=== PATIENT | male | born 1950 | race Caucasian/White ===

== ENCOUNTER → 2018-11-01 | Outpatient (CLI) | payer MEDICARE ==
--- NOTE | 2018-11-01 10:02 | XR ---
EXAMINATION TYPE: XR chest 2V DATE OF EXAM: 11/01/2018 COMPARISON: NONE HISTORY: Shortness of breath TECHNIQUE: Frontal and lateral views of the chest are obtained. FINDINGS: Scattered senescent parenchymal changes noted. Hyperinflation compatible with COPD. No evidence for infiltrate. No evidence for atelectasis. Heart size is stable. Mediastinal structures are stable and grossly unremarkable. No evidence for hilar prominence. Degenerative changes dorsal spine. IMPRESSION: 1. No evidence for acute pulmonary disease.
[2018-11-01 10:28] LABS: Appearance,Urine Clear (Clear); Bilirubin,Urine Negative (Negative); Blood,Urine Small (Negative); Color,Urine Yellow; Glucose,Urine (UA) Negative (Negative); INR 0.9 (<1.2); Ketones,Urine Negative (Negative); Leukocyte Esterase,Urine Negative (Negative); Mucus,Urine Few /hpf; Nitrite,Urine Negative (Negative); Partial Thromboplastin Time 27.6 sec (22.0-30.0); Protein,Urine Negative (Negative); Prothrombin Time 9.6 sec (9.0-12.0); RBC,Urine 1 /hpf (0-5); Specific Gravity,Urine 1.019 (1.001-1.035); Squamous Epithelial Cell,Urine <1 /hpf (0-4); Urobilinogen,Urine <2.0 mg/dL (<2.0); WBC,Urine 1 /hpf (0-5)
[2018-11-01 10:41] LABS: African American GFR (CKD) >90 (>60 ml/min/1.73 sqM); Anion Gap 12 mmol/L; Blood Urea Nitrogen 19 mg/dL (9-20); Calcium 9.9 mg/dL (8.4-10.2); Carbon Dioxide 26 mmol/L (22-30); Chloride 105 mmol/L (98-107); Glucose 104 mg/dL (74-99); Sodium 143 mmol/L (137-145)
[2018-11-01 10:42] LABS: Basophils # (A) 0.2 k/uL (0-0.2); Basophils % (A) 1 %; Eosinophils # (A) 0.3 k/uL (0-0.7); Eosinophils % (A) 2 %; HCT 48.6 % (39.0-53.0); HGB 16.1 gm/dL (13.0-17.5); Lymphocytes # (A) 2.2 k/uL (1.0-4.8); Lymphocytes % (A) 20 %; MCH 31.6 pg (25.0-35.0); MCHC 33.1 g/dL (31.0-37.0); MCV 95.7 fL (80.0-100.0); Mean Platelet Volume 8.7; Monocytes # (A) 0.6 k/uL (0-1.0); Monocytes % (A) 5 %; Neutrophils # (A) 7.9 k/uL (1.3-7.7); Neutrophils % (A) 70 %; Platelet Count 238 k/uL (150-450); RBC 5.08 m/uL (4.30-5.90); RDW 13.7 % (11.5-15.5); WBC 11.3 k/uL (3.8-10.6)
== END | disposition home or self-care (01) ==
LOC: LABPAT 09:20
PROVIDERS: ATTEND Orthopaedic Surgery Orthopaedic Surgery of the Spine
DX: Z01.818 Encounter for other preprocedural examination (principal); M48.02 Spinal stenosis, cervical region; Z01.812 Encounter for preprocedural laboratory examination
CPT/HCPCS: 36415; 71046; 80048; 81001; 85025; 85610; 85730; 93005

== ENCOUNTER 2018-11-12 07:21 | Day surgery (SDC) | payer MEDICARE ==
[2018-11-06 08:59] VITALS: BMI 20.3
[~2018-11-12 07:21] MED LIST: BACITRACIN 50,000 UNIT, POLYMYXIN B 500,000 UNIT in SODIUM CHLORIDE 0.9% IRRIGATIO 1,00... IRRIGATION ONE; DEXAMETHASONE SOD PHOSPHATE 10 MG/ML 1 ML VIAL IV ONE; LIDOCAINE 1% 20 ML VIAL (10MG/ML) FOR IV START INTRADERMA PRN
[2018-11-12] MEDS: LACTATED RINGERS 1,000 ML IV SCH (07:52)
[2018-11-12] MEDS ORDERED: ONDANSETRON 4 MG/2 ML VIAL IVP ONE (07:52)
[2018-11-12] MEDS ORDERED: MIDAZOLAM 2 MG/2 ML VIAL ONE (08:20)
[2018-11-12] MEDS ORDERED: NEOSTIGMINE 1 MG/ML 10 ML VIAL ONE (08:20)
[2018-11-12] MEDS ORDERED: fentaNYL (PF) 50 MCG/ML 2 ML AMP ONE (08:20)
[2018-11-12] MEDS ORDERED: ROCURONIUM BROMIDE 10 MG/ML 10 ML VIAL IV ONE (08:20)
[2018-11-12] MEDS ORDERED: PROPOFOL 10 MG/ML 20 ML VIAL IV ONE (08:20)
[2018-11-12] MEDS ORDERED: GLYCOPYRROLATE 0.2 MG/ML 2 ML VIAL ONE (08:20)
[2018-11-12] MEDS ORDERED: LIDOCAINE 1% INJ 10MG/ML (20 ML MDV) ONE (08:20)
[2018-11-12] MEDS ORDERED: DEXAMETHASONE SOD PHOS (MDV) 100 MG/10 ML VIAL ONE (08:20)
[2018-11-12] MEDS ORDERED: SUCCINYLCHOLINE CHLORIDE 100 MG/5 ML SYR IV ONE (08:20)
[2018-11-12] MEDS ORDERED: ePHEDrine SULFATE/0.9% NACL/PF 50 MG/5 ML SYRINGE IV ONE (08:20)
[2018-11-12] MEDS ORDERED: LIDOCAINE 0.5%-EPI 1:200,000 50 ML VIAL SQ ONE ×2 (09:00)
[2018-11-12] MEDS ORDERED: THROMBIN (BOVINE) 5,000 UNIT VIAL TOPICAL ONE (09:16)
[2018-11-12] MEDS ORDERED: GELATIN SPONGE,ABSORB (LARGE) 1 EACH SPONGE TOPICAL ONE (09:17)
[2018-11-12] MEDS ORDERED: LACTATED RINGERS 1,000 ML IV ONE ×2 (10:05→12:28)
[2018-11-12] MEDS ORDERED: ONDANSETRON 4 MG/2 ML VIAL IVP PRN (10:54)
[2018-11-12] MEDS ORDERED: BENZOCAINE/MENTHOL LOZENG 1 EACH LOZENGE MUCOUS MEM PRN (10:54)
[2018-11-12] MEDS ORDERED: HYDROcodone/APAP 5-325MG 1 EACH TAB PO PRN (10:54)
[2018-11-12] MEDS ORDERED: ACETAMINOPHEN TAB 325 MG TAB PO PRN (10:54)
[2018-11-12] MEDS ORDERED: HYDROmorphone 0.5 MG/0.5 ML SYRINGE IVP PRN (10:54)
[2018-11-12] MEDS ORDERED: MAGNESIUM HYDROXIDE 2,400 MG/10 ML CUP PO PRN (10:54)
--- NOTE | 2018-11-12 10:59 | P.OP ---
Date of Procedure: 11/12/18 Preoperative Diagnosis: Severe cervical stenosis C4 5 C5 6 C6 7, degenerative disc disease, cervical kyphosis, osteophyte spurring, upper extremity radiculopathy, neck pain, Postoperative Diagnosis: Same Anesthesia: GETA Pathology: none sent Condition: stable Disposition: PACU Description of Procedure: BRIEF OPERATIVE NOTE Preoperative Diagnosis:Severe cervical stenosis C4 5 C5 6 C6 7, degenerative disc disease, cervical kyphosis, osteophyte spurring, upper extremity radiculopathy, neck pain, Postoperative Diagnosis:Severe cervical stenosis C4 5 C5 6 C6 7, degenerative disc disease, cervical kyphosis, osteophyte spurring, upper extremity radiculopathy, neck pain, Procedure: Anterior cervical decompression with discectomy and fusion C4 5 C5 6 C6 7 Placement of interbody graft C4 5 C5 6 C6 7 Application of anterior cervical plate C4 5 6 and 7 Surgeon: Dr. Reina Wanigan Clerk: Amadou ROME who is present throughout the entire the case persistence during positioning, dissection, exposure, visualization, and all crucial elements of the case as well as closure. Anesthesia: General anesthesia Estimated blood loss: Approximately 75 mL Complications: None apparent Components implanted: K2M Sanders anterior cervical plate system with variable angle screws measuring 3.5 and 4.0 x 14 Disposition: To recovery room in good stable condition. OPERATIVE INDICATIONS The patient has had long-standing issues in their neck and upper extremities. He was having evidence of further degenerative change and progressive kyphosis at his cervical spine with significant stenosis at C4 5 C5-C6. Findings correlated well with his neck and upper extremity symptoms. He was having worsening split symptoms despite aggressive conservative care. The patient has been through conservative treatment. We discussed various treatment options including surgery, and the patient wishes to proceed with surgery We discussed the risk, patient's alternatives and benefits of surgery including but not limited to, risk of bleeding risk of infection, risk of need for further surgery, risk of decreased, loss of motion, muscle function, malunion nonunion, hardware failure, nerve damage, paralysis, heart attack, and . OPERATIVE SUMMARY After discussing all the risks, patient alternatives and benefits at length, the patient elected to proceed with surgical intervention, signed informed consent, and presented for their procedure. The patient was seen and examined in the preoperative holding area and the surgical site was marked. The patient was given antibiotics and brought to the operating room. The patient was positioned on the operating room table in a supine position being careful to pad any bony prominences and pressure points. The patient was sedated and intubated by anesthesia in standard fashion. Once the airway and C- spine were stabilized the patient's arms were padded and tucked at her side, with her shoulders gently taped. The head was placed in a donut pad with the neck in good neutral alignment and position. We were careful to maintain the patient's cervical spine and good neutral alignment and position throughout. The patient was prepped and draped in a normal standard fashion. An appropriate timeout and keystone protocol performed. We were able to proceed with the surgery. The local wound area was infiltrated with local anesthetic. An incision was made transversely approximately 2-1/2 cm over the appropriate levels at C5 6 on the right. Dissection was taken down subcutaneously to the level of the platysma which was split in line with its fibers. Dissection was taken with a carotid approach, with the trachea and esophagus medial and the carotid sheath laterally. We dissected down to the anterior surface of the vertebral bodies. Intraoperative x-ray was taken which showed a marker at the appropriate level at C5 6. With the appropriate level positively confirmed, we were able to proceed with discectomy at the appropriate levels first at C6 7 and then at C5 6 and at C4 5. All of the operative levels were exposed appropriately. The patient had all their twitches back, and there was no evidence of recurrent laryngeal issue. The wound was copiously irrigated and suctioned dry as had been done periodically throughout the case. At the appropriate level/levels, starting at C6 7 and then at C5 6 and then at C4 5, I established an annulotomy with an 11 blade scalpel. Large anterior osteophytes removed with a Kerrison rongeur. A discectomy was performed with a combination of pituitary rongeurs, curettes, a high-speed bur, and Kerrison rongeurs. The posterior longitudinal ligament was taken down as were any posterior osteophytes. There had been evidence of severe central and bilateral foraminal decompression but decompression discectomy gave good ligamentous. This gave good central and bilateral foraminal decompression. There is no evidence of any dural tear or leak. The endplates were prepared with a high-speed bur. With the endplates in good parallel position, I was able to size for the appropriate size interbody graft. The wound was irrigated and suctioned dry the graft was prepared and malleted into position. It had good alignment and position with the anterior surface flush with the anterior surface of the vertebral bodies. This was done similarly the appropriate levels. With the grafts intact, I was able to measure and contour and appropriate sized plate. The plate was positioned at the midline over the appropriate levels from C4 to C7. Screw holes were established with a hand drill and drill guide. Screws were placed in good alignment and position with excellent bony purchase. We tried to get some improved positioning of the patient's kyphosis at his cervical spine. They were seated under the locking device. The construct was checked and found to be stable. Intraoperative x-ray was taken which showed good alignment and position of the implants at the appropriate levels. There was no evidence of any dural tear or leak. Good hemostasis was maintained. The wound was copiously irrigated and suctioned dry as had been done periodically throughout the case. The platysma was closed with absorbable suture. The subcutaneous tissue was closed. The subcuticular tissue was closed with absorbable suture. The wound was cleaned and dried and dressed appropriately. A soft cervical collar was placed appropriately. The patient was woken up by anesthesia, extubated, transferred back gently to their hospital bed and brought to the recovery room in good stable condition. The patient will be admitted to the hospital for appropriate postoperative care, medical management and monitoring. We will continue to follow them closely about the postoperative course.
[2018-11-12] MEDS ORDERED: HYDROmorphone 1 MG/ML 1 ML SYRINGE IVP ONE ×7 (11:26→14:13)
--- NOTE | 2018-11-12 11:28 | XR ---
EXAMINATION TYPE: XR cervical spine 1V DATE OF EXAM: 11/12/2018 COMPARISON: NONE HISTORY: Postop TECHNIQUE: One view is submitted. FINDINGS: Single view demonstrates endotracheal tube. There is postsurgical change compatible with anterior fix ation involving the mid and lower cervical spine which appears in near-anatomic alignment. Hypertroph ic spurring at C3-4 and C2-3 noted there is multilevel facet arthropathy with diffuse osteopenia. IMPRESSION: 1. Postsurgical changes.
[2018-11-12] MEDS ORDERED: diphenhydrAMINE 50 MG/ML 1 ML VIAL IVP ONE (11:46)
[2018-11-12] MEDS: fentaNYL (PF) 50 MCG/ML 2 ML AMP IV PRN ×2 (11:56→12:10)
[2018-11-12] MEDS: MIDAZOLAM 2 MG/2 ML VIAL IV PRN ×2 (12:22→12:40)
[2018-11-12] MEDS: MEPERIDINE 50 MG/ML SYRINGE IVP ONE ×2 (12:30→12:44)
[2018-11-12] MEDS ORDERED: METOPROLOL TARTRATE 5 MG/5 ML VIAL IVP ONE (12:54)
[2018-11-12] MEDS: HYDROmorphone 1 MG/ML 1 ML SYRINGE IVP PRN ×2 (15:26→20:20)
[2018-11-12] MEDS: HYDROcodone/APAP 7.5-325MG 1 EACH TAB PO PRN (23:23)
[2018-11-13] MEDS: HYDROmorphone 1 MG/ML 1 ML SYRINGE IVP PRN ×2 (02:34→06:18)
[2018-11-13] MEDS: HYDROcodone/APAP 7.5-325MG 1 EACH TAB PO PRN ×5 (05:17→23:07)
[2018-11-13] MEDS: LACTATED RINGERS 1,000 ML IV SCH (05:19)
[2018-11-13] MEDS: SERTRALINE 50 MG TAB PO SCH (07:49)
[2018-11-13] MEDS ORDERED: HYDROmorphone 1 MG/ML 1 ML SYRINGE IVP PRN (10:41)
[2018-11-13] MEDS ORDERED: methylPREDNISolone SOD SUCCI 125 MG/2 ML VIAL IV STA (11:13)
--- NOTE | 2018-11-13 11:25 | P.DS ---
Providers Date of admission: 11-12-18 Attending physician: Mark Reina Primary care physician: David Farfan [place] Hospital Course: The patient presented on the day of admission as per their operative note. He has severe cervical stenosis with early myelopathy upper extremity radiculopathy and cervical kyphosis and underwent his surgical procedure with intracervical discectomy with decompression and fusion yesterday as per his operative note. He says he is having significant pain in his left upper extremity down his left arm. He says his neck is doing well he has been able to get up and around he is able to eat soft diet. He is having pain in his left arm. Denies any weakness of his left arm. Physical Exam The incision site is clean dry and intact. There is no erythema no drainage. There is no purulence no evidence of infection. His neck is soft and supple. The incision sites clean and dry Abdomen soft and nontender. Chest has good excursion with deep inspiration and expiration. The patient has active and passive range of motion intact at the upper and lower extremities. There is no acute change in neurologic status. 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 Hospital Course Postoperative day 1 status post anterior cervical decompression with discectomy and fusion at cervical spine for his severe cervical stenosis with cervical kyphosis and upper extremity radiculopathy and early myelopathy. He is having significant pain in his left upper extremity which seems radicular nature. I see if he has some benefit with Neurontin and a steroid dose to see if it'll settle down some of the irritation around the nerve root. His wound site appears to be healing well and there were not any and toward issues at the time of surgery of note to account for the surgery. I will check a new x-ray to evaluate the hardware in today to see if there is any change from surgery. He would like to try go home with his pain is better controlled and we will see if he has better control of the symptoms later today. We will sent home with pain medications and Neurontin if he is able to home today. They have completed the prophylactic antibiotics without any signs or symptoms of infection. The patient has been able to advance their diet, and is tolerating diet adequately. The pain was initially controlled with IV medications and is now controlled appropriately with oral medications. The malorie douglas has been able to increase their mobilization. If his pain is better controlled his left upper extremity and it will be okay for discharge home today. However she is not able to control issues with oral medications or if the imaging is questionable been we may have to keep him overnight. I discussed this with him and he understands. Patient Condition at Discharge: Fair Plan - Discharge Summary Discharge Rx Participant: No New Discharge Prescriptions: New Gabapentin [Neurontin] 300 mg PO BID #14 cap HYDROcodone/APAP 7.5-325MG [Smith 7.5-325] 1 - 2 tab PO Q6H PRN 7 Days #56 tab PRN Reason: Pain No Action Sertraline [Zoloft] 50 mg PO QAM Discharge Medication List Sertraline [Zoloft] 50 mg PO QAM 11/06/18 [History] Gabapentin [Neurontin] 300 mg PO BID #14 cap 11/13/18 [Rx] HYDROcodone/APAP 7.5-325MG [Smith 7.5-325] 1 - 2 tab PO Q6H PRN 7 Days #56 tab 11/13/18 [Rx] Follow up Appointment(s)/Referral(s): Mark Reina DO [Doctor of Osteopathic Medicine] - 1 Week Activity/Diet/Wound Care/Special Instructions: Keep site clean. May shower with waterproof Tegaderm intact. Do not soak in a tub. After 72 hours postoperatively, patient May remove dressing and then may shower with area uncovered. Leave Steri-Strips intact and allow them to fray off on their own. May ambulate as tolerated. Avoid heavy or rigorous activity. No repetitive bending twisting or lifting. No overhead work. Discharge Disposition: HOME SELF-CARE
--- NOTE | 2018-11-13 12:06 | XR ---
EXAMINATION TYPE: XR cervical spine limited DATE OF EXAM: 11/13/2018 COMPARISON: NONE HISTORY: Postop TECHNIQUE: 2 views submitted FINDINGS: Postsurgical changes at levels C4-C7. Anterolisthesis C3 on C4 with degenerative disc disea se and hypertrophic changes at C2-3 and C3-C4. There is a slight anterolisthesis of C4 on C5 uppermos t surgical level. Multilevel facet arthropathy and diffuse osteopenia. IMPRESSION: Postsurgical changes.
[2018-11-13] MEDS: HYDROmorphone 2 MG/ML 1 ML SYRINGE IVP PRN ×2 (15:22→19:46)
[2018-11-13] MEDS: GABAPENTIN 300 MG CAP PO SCH (20:19)
[2018-11-14] MEDS: HYDROmorphone 2 MG/ML 1 ML SYRINGE IVP PRN ×2 (00:05→04:08)
[2018-11-14] MEDS: LACTATED RINGERS 1,000 ML IV SCH (04:56)
[2018-11-14] MEDS: HYDROcodone/APAP 7.5-325MG 1 EACH TAB PO PRN (06:13)
[2018-11-14 07:45] VITALS: BP 160/95; PULSE 53; RESP 17; TEMP 97.9
[2018-11-14] MEDS: SERTRALINE 50 MG TAB PO SCH (08:02)
[2018-11-14] MEDS: GABAPENTIN 300 MG CAP PO SCH (08:02)
--- NOTE | 2018-11-14 08:27 | P.PN ---
Progress Note - Text Progress Note Date: 11/14/18 Patient is a very pleasant 68-year-old male who is seen and examined at bedside for follow-up evaluation in regards to his cervical spine. He is status post C4-5, C5-6, and C6-7 anterior cervical decompression and fusion performed on 11/12/2018. Postoperatively he has been experiencing significant left upper extremity radiculopathy. He has pain that radiates over the left shoulder, down the triceps, and into the forearm. He has difficulty getting his left arm in a comfortable position. He denies any right upper extremity radiculopathy. Cervical pain is well-controlled. He is eating and voiding without difficulty. He has required oral and IV narcotics along with gabapentin and IV steroid for some control his symptoms. He does feel he would like to try to discontinue the IV medications in anticipation that his symptoms could be adequately controlled and he would be able to be discharged home today. He denies any specific upper extremity weakness bilaterally. Physical Exam Cervical Fusion: Status post surgical day number 2 Patient is awake, alert, and oriented 3 Vital signs stable Good chest excursion with deep inspiration and expiration Bit Bender strength, thumb strength, interosseous strength, biceps strength, triceps strength, and shoulder strength positive sustained bilaterally Patient is able to perform active range of motion of the left upper extremity and specifically the shoulder without difficulty Patient does hold the left upper extremity was supported by the right upper extremity for comfort Dressing is clean, dry, and intact; no erythema, purulence, or signs of infection Assessment: Status post C4-5, C5-6, and C6-7 anterior cervical decompression and fusion Left upper extremity radiculopathy Cervical degenerative disc disease Cervical kyphosis Cervical osteophytic spurring Cervicalgia Plan: 1. Ambulate as tolerated; work with Physical Therapy to increase mobilization 2. Continue pain control with oral medications including Powell 7.5 mg/325 mg, Neurontin, and prednisone; we will try to wean off IV Dilaudid in anticipation for discharge home Patient is given prescriptions for Neurontin 300 mg 1 tab twice a day, Powell 7.5 mg/325 mg 1-2 tabs every 6 hours as needed for pain, and prednisone 10 mg 12 day taper at discharge. He should take these medications as prescribed as needed for control of his symptoms. 3. Patient may shower with Tegaderm dressing; patient may remove Tegaderm in 4 days and shower without a dressing at that time 4. If patient is able to have pain adequately controlled after discontinuation of IV medications, we'll plan for patient to be discharged home today; We will continue to follow the patient closely 5. Patient can follow-up with Amadou Llanes PA-C or Dr. Collin Reina at [facility] in 2-3 weeks following discharge
[2018-11-14] MEDS ORDERED: predniSONE 20 MG TAB PO SCH (09:00)
--- NOTE | 2018-11-14 11:17 | XR ---
EXAMINATION TYPE: XR cervical spine 1V DATE OF EXAM: 11/12/2018 COMPARISON: NONE HISTORY: Needle localization TECHNIQUE: Single intraoperative crosstable lateral views submitted FINDINGS: Exam limited by technique and inclusion of only portions of part of the cervical spine. Sug gestion of an endotracheal tube. Metallic instrument or density overlying a disc space at the approxi mate level C5-C6. Multilevel degenerative disc disease and facet arthropathy. IMPRESSION: Intraoperative localization
== END 2018-11-14 11:15 | disposition home or self-care (01) ==
LOC: OR 07:21 → 4SSUR 14:53 → OR 11-14 11:15
PROVIDERS: ATTEND Orthopaedic Surgery Orthopaedic Surgery of the Spine
DX: M48.02 Spinal stenosis, cervical region (principal); M50.121 Cervical disc disorder at C4-C5 level with radiculopathy; M50.021 Cervical disc disorder at C4-C5 level with myelopathy; M40.202 Unspecified kyphosis, cervical region; M25.78 Osteophyte, vertebrae; M79.12 Myalgia of auxiliary muscles, head and neck; M43.12 Spondylolisthesis, cervical region; F41.9 Anxiety disorder, unspecified; Z97.3 Presence of spectacles and contact lenses; Z79.891 Long term (current) use of opiate analgesic; Z79.52 Long term (current) use of systemic steroids; Z79.899 Other long term (current) drug therapy; F17.210 Nicotine dependence, cigarettes, uncomplicated
CPT/HCPCS: 94760; 72020; 72040; 22551; 22552 ×2; 20931; C1713 ×2; C1762 ×2; J2250; J1170 ×4; J1200; J2930; J2175; J0690; J2405; J2001; J3010; J1100; J0330; J2704; J7512

== ENCOUNTER → 2019-10-22 | Outpatient (CLI) | payer MEDICARE ==
[2019-10-22 12:30] LABS: Basophils % (A) 0 %; Eosinophils # (A) 0.2 k/uL (0-0.7); Eosinophils % (A) 3 %; HCT 49.7 % (39.0-53.0); HGB 15.9 gm/dL (13.0-17.5); Lymphocytes # (A) 2.2 k/uL (1.0-4.8); Lymphocytes % (A) 23 %; MCH 31.1 pg (25.0-35.0); MCV 97.2 fL (80.0-100.0); Mean Platelet Volume 9.5; Monocytes # (A) 0.5 k/uL (0-1.0); Monocytes % (A) 5 %; Neutrophils # (A) 6.6 k/uL (1.3-7.7); Neutrophils % (A) 68 %; Platelet Count 243 k/uL (150-450); RBC 5.12 m/uL (4.30-5.90); RDW 13.4 % (11.5-15.5); WBC 9.8 k/uL (3.8-10.6)
[2019-10-22 18:49] LABS: African American GFR (CKD) 107.1 (60.0-200.0); Albumin 4.2 g/dL (3.80-4.90); Albumin/Globulin Ratio 1.83 (1.60-3.17); BUN/Creat Ratio 18.75 Ratio (12.00-20.00); Calcium 9.1 mg/dL (8.7-10.3); Globulin 2.3 g/dL (1.6-3.3); Non-African American GFR(CKD) 92.4 (60.0-200.0); Phosphorus 2.8 mg/dL (2.4-5.1); Potassium 4.6 mmol/L (3.5-5.5); Total Bilirubin 0.6 mg/dL (0.2-1.2); Total Protein 6.5 g/dL (6.2-8.2)
== END | disposition home or self-care (01) ==
LOC: LABWHC1 11:13
PROVIDERS: ATTEND Nurse Practitioner Family
DX: E78.5 Hyperlipidemia, unspecified (principal); E78.00 Pure hypercholesterolemia, unspecified; R07.9 Chest pain, unspecified; R14.2 Eructation
CPT/HCPCS: 36415; 80053; 82550; 83735; 84100; 84484; 85025

== ENCOUNTER → 2021-03-22 | Outpatient (CLI) | payer MEDICARE ==
[2021-03-20 15:42] VITALS: BMI 20.3
[2021-03-22 13:19] VITALS: BP 117/76; PULSE 81; RESP 18
--- NOTE | 2021-03-22 13:24 | P.CON ---
Consult Note - . Consult date: 03/22/21 Assessment/Plan:: HISTORY OF PRESENT ILLNESS: 71-year-old male as a referral from Dr. Reina presents today with a history of cervical disc bulges, dextrorotoscoliosis, spinal stenosis, neuroforaminal stenosis and facet arthropathy for evaluation. Patient states his pain is 8 out of 10 in intensity, dull and achy in the cervical spine, constant "wedge" in character and radiation of numbness and tingling in the bilateral upper extremities. Patient states his pain is provoked with extension, lateral flexion, and rotation. Pain is relieved with dictations, topicals, heat, physical therapy in 2020, massage and rest. PMH: OA, MDD, Hyperlipidemia PSH: Cervical fusion with hardware placement in 2019, R shoulder surgeries x 3 SH: 25 pack year tobacco user, frequent ETOH use. No illicit drug use. Lives alone FH: Non contributory All: NKDA Meds: [place] 5/325mg from Dr Reina, Abelardo Rivas REVIEW OF ORGAN SYSTEMS: CONSTITUTIONAL: No fevers or chills. No recent weight loss. HEENT: No visual acuity loss, eye pain, difficulties with hearing. No nosebleeds. No difficulty swallowing. RESPIRATORY: Denies any troubles with breathing or dyspnea on exertion. CARDIOVASCULAR: Denies any chest pain, palpitations, or recent heart attacks. GASTROINTESTINAL: Denies fatty food intolerance. Has change in bowel habits and gas bloat. GENITOURINARY: Denies any blood in urine. Has increased urinary frequency. NEUROLOGICAL: + numbness and tingling along the distal extremities. No seizure disorders or headaches. MUSCULOSKELETAL: + back pain SKIN: No skin cancer. No rash. PSYCHIATRIC: Denies current depression or suicidal thoug hts. ENDOCRINE: Denies current thyroid disorders. Denies any blood sugar glucose intolerance. HEME/LYMPHATIC: Denies any lumps and bumps around the neck. History of deep venous thrombosis. ALLERGY/IMMUNOLOGY: No immunoglobulin therapy. No immune deficiencies. BREAST: Denies current breast lumps, pain or nipple d ischarge. Physical Examinations : Constitutional : Cooperative , not in acute distress . HEENT: Neck supple. No Lymphadenopathy. Normal thyroid size . Eyes no ptosis , no icterus, no photophobia . Hearing intact. Normal oropharynx. No Thrush. Respiratory : Chest clear to auscultations bilaterally. No wheezing. No rhonchi. Cardiovascular : Regular rate and rhythm , S1 / S2. No S3 . No S4. Gastrointestinal : Abdomen soft. No tenderness. Bowel sounds x 4. No organomegaly . Genitourinary : Deferred. Neurologic : Cranial nerve II to XII intact. No focal neurological deficits. Psychiatric : alert & oriented x 3. Matching mood & appropriate affect. Judgment & insight intact. Lymphatic No Lymphadenopathy. Musculoskeletal : Cervical Spine Motor strength in the deltoid and biceps: Normal right side. Normal Left side Motor strength biceps and the wrist extensors: Normal right side . Normal left side Motor strength in the triceps muscle: Normal right side. Normal left side Deep tendon reflexes: Normal at the biceps. Normal at Brachioradialis. Normal at triceps Moderate vertebral body tenderness over C5, C6, C7 Cervical facet loading test: positive bilaterally over C6-C7 Spurling test: positive bilaterally Neck distraction test: positive bilaterally Arsenio sign: positive bilaterally Lumbar spine Motor strength lower extremities ,thigh and legs 5/5 Right side , 5/5 Left side Deep tendon reflexes : Normal Knee Jerk. Normal Ankle Jerk Lumbar facet Loading Test: positive Right / positive Left Range of motion of the lumbar spine Flexion 30 degrees, extension 10 degrees Straight Leg Raise test: Left/ Right positive at degree Ney test: positive right / positive left. Severe tenderness over the Sacroiliac joint on the Right / Left sides Gaenslen test: positive bilaterally Seated flexion test: positive bilater ally. Imaging: Cervical MRI 09/26/2018 reviewed Cervical x-ray 03/07/2021 reviewed Assessment/ Plan : Recommendation of ADA at the C6-C7 May need a series depending on response to treatment and sufficient pain relief Denies aspirin or anticoagulants use Risks, benefits of procedure discussed and patient verbalized understanding I have spent greater than 50 minutes on patient care today. Dr Harrington was available by phone for the evaluation of this patient. The time was used to review the medical records including relevant urine studies and Prescription history (MAPs), review of the available imaging, evaluation and examination of the patient, coordination of care with the medical staff and if applicable referring physicians, as well as creation of the medical record PQRS Measure Charge Sheet Mode of Arrival: Ambulatory - Pain Location Neck Non-Pharmacological Interventions: Heat, Home Exercise, Inactivity, Massage, Physical Therapy, Position/Reposition, Stretching Pharmacological Interventions: PRN Medication PQRS Narrative: Blood Pressure 117/76 Pain Intensity [Neck] 8 Scale Used Numeric (1 - 10) Hx Alcohol Use (MH) No Home Medications: Ambulatory Orders Sertraline [Zoloft] 50 mg PO QAM 11/06/18 Gabapentin [Neurontin] 300 mg PO BID #14 cap 11/13/18 HYDROcodone/APAP 7.5-325MG [[place] 7.5-325] 1 - 2 tab PO Q6H PRN 7 Days #56 tab 11/13/18 predniSONE See Taper PO DIRECTED #24 tab 11/14/18 Cyclobenzaprine [Flexeril] 5 mg PO HS 03/22/21 Ibuprofen [Motrin] 600 mg PO Q6HR PRN 03/22/21
== END ==
LOC: PNWHC3 12:17
PROVIDERS: ATTEND Physician Assistant Medical
DX: M50.20 Other cervical disc displacement, unspecified cervical region (principal); M41.82 Other forms of scoliosis, cervical region; M48.02 Spinal stenosis, cervical region; M47.812 Spondylosis without myelopathy or radiculopathy, cervical region; M19.90 Unspecified osteoarthritis, unspecified site; E78.5 Hyperlipidemia, unspecified; F17.210 Nicotine dependence, cigarettes, uncomplicated; F32.9 Major depressive disorder, single episode, unspecified
CPT/HCPCS: 99211

== ENCOUNTER → 2022-06-29 | Outpatient (CLI) | payer MEDICARE ==
--- NOTE | 2022-06-30 06:03 | MR ---
EXAMINATION TYPE: MR shoulder RT wo con DATE OF EXAM: 06/29/2022 COMPARISON: None. HISTORY: Rt shoulder pain x2 months- repetitive issues with rotator cuff injuries TECHNIQUE: Multiplanar, multisequence imaging of the right shoulder is performed without contrast. FINDINGS: Rotator Cuff: Increased signal in the infraspinatus and particularly supraspinatus tendons including the supraspinatus muscle bulk. Rotator cuff muscle bulk is preserved. Marked thickening and increased signal of the subscapularis tendon with surrounding fluid. Acromioclavicular Joint: Moderate narrowing with mild capsular hypertrophy and spurring. Possible und erlying fat pad consistent with underlying impingement Glenohumeral Joint: Moderate sized joint effusion with narrowing. No significant spurring. Labrum: The superior labrum is blunted consistent with tear. Biceps Tendon: The long head of biceps is in normal location within bicipital groove. Intracapsular p ortion to labral anchor is not identified, tear is strongly suspected. Bone marrow signal: Susceptibility artifact along the anterior portion of the proximal humerus likely product of prior surgery at this level. Subchondral cystic change involving the lateral aspect of th e humeral head and posterior aspect of the osseous glenoid. Artifact from prior anterior screws in th e humeral head is noted. Other: No additional significant abnormality is appreciated. IMPRESSION: 1. Evidence of prior surgical change to the humeral head with extensive tendinopathy of the supraspin atus and subscapularis tendons. 2. At least moderate degenerative changes in the shoulder as detailed above. Underlying impingement i s suspected. Correlate clinically. 3. Superior labral tear. Likely tear of the long head of biceps attachment at the labral anchor.
== END | disposition home or self-care (01) ==
LOC: RADMRIMAIN 19:27
PROVIDERS: ATTEND Family Medicine
DX: S43.421A Sprain of right rotator cuff capsule, initial encounter (principal); M19.011 Primary osteoarthritis, right shoulder

== ENCOUNTER → 2022-10-25 | Day surgery (SDC) | payer MEDICARE ==
[2022-10-24 08:27] VITALS: BMI 20.9
[~2022-10-25] MED LIST changes: -BACITRACIN 50,000 UNIT, POLYMYXIN B 500,000 UNIT in SODIUM CHLORIDE 0.9% IRRIGATIO 1,00... IRRIGATION ONE; -DEXAMETHASONE SOD PHOSPHATE 10 MG/ML 1 ML VIAL IV ONE; +LACTATED RINGERS 1,000 ML IV SCH; -LIDOCAINE 1% 20 ML VIAL (10MG/ML) FOR IV START INTRADERMA PRN; +PROPOFOL 10 MG/ML 20 ML VIAL IV ONE
--- NOTE | 2022-10-25 07:46 | P.GSHP ---
History of Present Illness H&P Date: 10/25/22 Chief Complaint: Screening colonoscopy Cyst 72-year-old male who presents today for screening colonoscopy. Patient denies a significant GI complaints. Past Medical History Additional Past Medical History / Comment(s): NECK AND SHOULDER PAIN, HX OF DDD & CERVICAL STENOSIS WITH SURGERY. Patient states he's SOB sometimes and uses inhaler as needed History of Any Multi-Drug Resistant Organisms: None Reported Past Surgical History: Back Surgery, Orthopedic Surgery Additional Past Surgical History / Comment(s): RIGHT SHOULDER SURGERY X3., ANTERIOR CERVICAL DECOMPRESSION ,DISCECTOMY & FUSION WITH CERVICAL PLATE (2019- DR COTTRELL) Past Anesthesia/Blood Transfusion Reactions: No Reported Reaction Past Psychological History: Anxiety Smoking Status: Current some day smoker Past Alcohol Use History: Occasional Additional Past Alcohol Use History / Comment(s): SMOKES 0- 1/2 PPD, STARTED SMOKING TEEN Past Drug Use History: Marijuana Additional Drug Use History / Comment(s): CURRENT MARIJUANA USE Per patient uses marijuana every day Medications and Allergies Home Medications Medication Instructions Recorded Confirmed Type Sertraline [Zoloft] 50 mg PO QAM 11/06/18 10/24/22 History Trelegy[Unknown Dose] 1 dose INHALATION DAILY 06/05/22 10/24/22 History lamoTRIgine [LaMICtal] 50 mg PO HS 06/05/22 10/24/22 History Allergies Allergy/AdvReac Type Severity Reaction Status Date / Time No Known Allergies Allergy Verified 10/24/22 08:21 Surgical - Exam Vital Signs Temp Pulse Resp BP Pulse Ox 97 F L 57 L 18 138/69 95 10/25/22 07:20 10/25/22 07:20 10/25/22 07:20 10/25/22 07:20 10/25/22 07:20 - General well developed, well nourished, no distress - Eyes PERRL - ENT normal pinna - Neck no masses - Respiratory normal expansion - Cardiovascular Rhythm: regular - Abdomen Abdomen: soft, non tender Assessment and Plan Assessment: We'll perform screening colonoscopy.
--- NOTE | 2022-10-25 07:58 | P.OP ---
Date of Procedure: 10/25/22 Preoperative Diagnosis: Screening colonoscopy Postoperative Diagnosis: Hemorrhoids Procedure(s) Performed: Colonoscopy Anesthesia: MAC Surgeon: Ruben Arguello Pathology: none sent Condition: stable Disposition: PACU Description of Procedure: The patient's placed on the endoscopy table lateral position. He received IV sedation. Digital rectal exam was performed. This revealed some external and internal hemorrhoids. The prostate was symmetric without nodules. Flexible colonoscope was then placed patient anus passed throughout the entire colon. The ileocecal valve was visually is. The cecum, ascending and transverse colon appeared normal. The descending and sigmoid colon appeared normal. Scope was brought back the rectum this appeared normal. Scope withdrawn for patient.
[2022-10-25 15:56] VITALS: BP 126/72; PULSE 50; RESP 14; TEMP 97
== END ==
LOC: ORWHC2ENDO 06:44
PROVIDERS: ATTEND Surgery
DX: Z12.11 Encounter for screening for malignant neoplasm of colon (principal); J44.9 Chronic obstructive pulmonary disease, unspecified; K64.4 Residual hemorrhoidal skin tags; K64.8 Other hemorrhoids; F41.9 Anxiety disorder, unspecified; F17.210 Nicotine dependence, cigarettes, uncomplicated; Z98.890 Other specified postprocedural states; Z79.899 Other long term (current) drug therapy
CPT/HCPCS: J2704; G0121

== ENCOUNTER → 2024-08-04 | Outpatient (CLI) | payer MEDICARE ==
--- NOTE | 2024-08-04 19:33 | CTL ---
EXAMINATION TYPE: CT Low Dose Lung DATE OF EXAM: 08/04/2024 5:11 PM COMPARISON: None. CLINICAL INDICATION: Male, 74 years old with history of Z12.2 LUNG CA SCR F17.210 CURRENT SMOKER; Cur rent smoker, 1/3 ppd x 60 years, history of tobacco use. TECHNIQUE: Multiple axial non-contrast scans were obtained from approximately the lung apices through the upper abdomen. Coronal and sagittal reformatted images were obtained. Low dose technique was uti lized. MIP were created on a separate workstation and submitted for review. CT DLP: 80.5 mGycm, Automated exposure control for dose reduction was used. CT Contrast: FINDINGS: Lack of intravenous contrast and low dose technique limits the evaluation of the vascular and soft ti ssue structures. Heart size is within normal limits. No pericardial effusion. Calcified also sclerotic disease thoraci c aorta without aneurysmal dilatation. Coronary artery calculi. No epiglottic mediastinal or hilar ly mphadenopathy. The pathologic axillary lymphadenopathy. Imaging through the lungs demonstrate diffuse centrilobular and paraseptal emphysema, most pronounced in the lung apices. Right apical scarring. 3 mm subpleural nodule in the posterior aspect of the rig ht lung apex (52/361). 5 mm solid nodule in the posterior aspect of the right upper lobe (82/361). Pa rt solid nodule in the right upper lobe measuring approximately 19 mm with 6 mm solid component (112- 361). No acute focal consolidation in the lungs. Partially visualized upper abdomen demonstrates no acute p athology. Partially visualized anterior cervical spinal fusion hardware. Thoracic spine degenerative changes and diffusely decreased osseous mineralization. IMPRESSION: Diffuse emphysema and right upper lobe 19 mm part solid nodule with approximately 6 mm solid componen t. Lung RAD 4A: Recommend follow-up low-dose CT lung cancer screening study in [address] LUNG RAD AND CT CHEST RECOMMENDATION: Lung-Rad 4A Suspicious: Follow-up 3 month LDCT or PET/CT may be used when there is a > 8 mm solid component. Recommend smoking cessation (if current smoker), or continuation of smoking cessation (if prior smoke r). Annual screening for lung cancer with low-dose computed tomography is recommended in adults ages 55 to 77 years who have a 30 pack-year smoking history and currently smoke or have quit within the pa st 15 years. Screening should be discontinued once a person has not smoked for 15 years or develops a health problem that substantially limits life expectancy or the ability or willingness to have curat charlie lung surgery. Lung rads 2021 [email or web address] [facility], Workstation: [employer], 08/04/2024 7:30 PM
== END | disposition home or self-care (01) ==
LOC: RADCTMAIN 16:45
PROVIDERS: ATTEND Family Medicine
DX: Z12.2 Encounter for screening for malignant neoplasm of respiratory organs (principal); F17.210 Nicotine dependence, cigarettes, uncomplicated; J43.2 Centrilobular emphysema; R91.1 Solitary pulmonary nodule
CPT/HCPCS: 71271

== ENCOUNTER → 2024-08-27 | Outpatient (CLI) | payer MEDICARE ==
--- NOTE | 2024-08-28 09:24 | PE ---
EXAMINATION TYPE: PET CT fusion skull to thigh DATE OF EXAM: 08/27/2024 CLINICAL INDICATION:Male, 74 years old with history of R91.1 pulmonary nodule; TECHNIQUE: Following the intravenous administration of 10.96 mCi of F-18 FDG, whole body images are performed from the skull base to the Mid thigh. Images are reviewed on the computer in the coronal, axial, and sagittal planes. Reconstructed rotating images are created on independent workstation an d reviewed on the computer. A non-contrast CT is performed in conjunction with the PET scan. Glucos e level 118 mg/dL CT DLP: 498 mGycm, Automated exposure control for dose reduction was used. COMPARISON: CT 08/04/2024, PET/CT None, MRI: None FINDINGS: Mediastinal SUV mean is 2.0. Hepatic parenchyma SUV mean is 2.5. SKULL BASE AND NECK: No suspicious radiotracer activity. CHEST, MEDIASTINUM, AND HILAR REGION: There is mild uptake above background lung within the groundglass pulmonary nodule in the right upper lung which has a solid component suggested up to 6 mm. Max SUV 1.6 which remain still below backgrou nd levels of the chest. ABDOMEN AND PELVIS: No suspicious radiotracer activity. MUSCULOSKELETAL STRUCTURES: No suspicious radiotracer activity. OTHER CT: Atherosclerosis of the carotid bifurcations. Right inguinal hernia fluid collection with bi lateral hydroceles. Mild sequential wall thickening of the bladder. Few scattered colonic diverticula . IMPRESSION: Mild uptake within a groundglass region compared to background parenchyma with solid component in the right upper lungs. Findings are equivocal at this time surveillance imaging with CT in 6 months deysi mmended. Findings could represent early malignancy versus scarring change. [facility], , 08/28/2024 9:21 AM
== END | disposition home or self-care (01) ==
LOC: RADPETMAIN 13:11
PROVIDERS: ATTEND Family Medicine
DX: R91.1 Solitary pulmonary nodule (principal); R93.7 Abnormal findings on diagnostic imaging of other parts of musculoskeletal system
CPT/HCPCS: 78815; A9552